=== PATIENT | male | born 1955 | race Caucasian/White ===

== ENCOUNTER → 2016-10-06 | Outpatient (CLI) | payer MEDICAID ==
[~2016-10-06] MED LIST: CIPRO 500MG TA500 MG PO; PERCOCET 10 MG1 EACH PO; PROTONIX 40MG T40 MG PO; STOOL SOFTENER240 MG PO
--- NOTE | 2016-10-06 21:40 | RADIOLOGY REPORT PS360 ---
KNEE-4 OR 5 VIEWS-RT HISTORY: BILATERAL KNEE PAIN ORDERING PHYSICIAN: Kumar Jacob MD PATIENT AGE: 61 years COMPARISON: None FINDINGS: Weightbearing AP, lateral, and Marcano views are obtained along with a patellar view. No fracture or dislocation. No lytic or blastic change. Normal mineralization. There is decrease in joint space medially and laterally with osteophyte formation consistent with mild osteoarthritic change. Spurring is present at the tibial spines. There is a small calcific density along the medial aspect of the medial tibial spine and may be due to an osteophyte. No other significant findings IMPRESSION: Mild osteoarthritic changes medial and lateral compartment of the right knee
--- NOTE | 2016-10-06 21:41 | RADIOLOGY REPORT PS360 ---
KNEE-4 OR 5 VIEWS-LT HISTORY: BILATERAL KNEE PAIN ORDERING PHYSICIAN: Kumar Jacob MD PATIENT AGE: 61 years COMPARISON: None FINDINGS: Minor osteoarthritic changes are present involving the lateral and medial compartment. No fracture or dislocation. No lytic or blastic change.. IMPRESSION: Minimal osteoarthritic change of the left knee
--- NOTE | 2016-10-07 07:47 | RADIOLOGY REPORT PS360 ---
EXAM: LUMBAR SPINE 5 VIEWS HISTORY: LOW BACK PAIN ORDERING PHYSICIAN: Kumar Jacob MD PATIENT AGE: 61 years COMPARISON: None FINDINGS: Normal alignment. No fracture or dislocation. No lytic or blastic change. Degenerative disc disease is present at L2-L3 and L4-L5. Endplate osteophytes are noted. Facet arthritic changes are present at L4-5 and L5-S1. IMPRESSION: Lumbar spondylosis with degenerative disc disease, osteophytosis, and facet arthritic change as described above
== END ==
LOC: RAD 17:44
DX: M54.5 Low back pain (principal); M25.561 Pain in right knee; M25.562 Pain in left knee